=== PATIENT | female | born 1985 | race American Indian/Alaskan Native ===

== ENCOUNTER 2019-08-02 13:53 | Emergency (ER) | payer OTHER ==
[2019-08-02] MEDS ORDERED: IBUPROFEN 800 MG TAB PO ONE (14:07)
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
--- NOTE | 2019-08-02 14:35 | XRay Report ---
Right knee 2 views INDICATION: Right knee pain following injury IMPRESSION: There is a severe moderately displaced fracture involving the lateral tibial plateau. Sunny ge lipohemarthrosis. Signer Name: Marino Conklin MD Signed: 08/02/2019 2:30 PM Workstation Name: [id number]
[2019-08-02] MEDS ORDERED: TETANUS,DIPH,PERTUSS(ACELL) VACCINE 0.5 ML SYRINGE IM ONE (15:12)
[2019-08-02 15:26] LABS: Basophils % (Auto) 0.2 % (0.0-1.8); Eosinophils % (Auto) 0.2 % (0.0-4.3); Hematocrit 37.7 % (30.3-42.9); Hemoglobin 12.3 gm/dl (10.1-14.3); Lymphocytes # (Auto) 2.1 K/mm3 (1.2-5.4); Lymphocytes % (Auto) 16.5 % (13.4-35.0); Mean Corpuscular HGB Conc 33 % (30-34); Mean Corpuscular Volume 86 fl (79-97); Monocytes # (Auto) 0.9 K/mm3 (0.0-0.8); Monocytes % (Auto) 7.2 % (0.0-7.3); Platelet Count 345 K/mm3 (140-440); Red Blood Count 4.39 M/mm3 (3.65-5.03); Red Cell Distribution Width 13.7 % (13.2-15.2)
[2019-08-02 15:52] LABS: Alanine Aminotransferase 146 units/L (7-56); Albumin 3.6 g/dL (3.9-5); BUN/Creatinine Ratio 15; Blood Urea Nitrogen 12 mg/dL (7-17); Calcium 8.6 mg/dL (8.4-10.2); Hemolysis Index 7
[2019-08-02] MEDS ORDERED: HYDROcodone/ACETAMINOPHEN 10-325MG TAB PO ONE (17:05)
--- NOTE | 2019-08-02 18:50 | Cat Scan Report ---
CT lower extremity RT wo con INDICATION: r knee pain. TECHNIQUE: All CT scans at this location are performed using the following dose modulation technique: Automated exposure control. COMPARISON: Right knee x-ray 08/02/2019 FINDINGS: There is a moderately depressed/split fracture of the lateral tibial plateau extending to the lateral tibial metaphysis. In addition, there is a nondisplaced fracture extending into the medial tibial pl ateau. There is an open laceration/wound along the anterior aspect of the patella with mildly displac ed fracture involving the medial aspect of the patella seen best on axial image 143. Moderate right k nee lipohemarthrosis is present. IMPRESSION: 1. (Compound fracture of the medial patella. 2. Moderately depressed split fracture of lateral tibial plateau with extension into the medial tibia l plateau with moderate-sized lipohemarthrosis Signer Name: Leif Sexton MD Signed: 08/02/2019 6:45 PM Workstation Name: [id number]
--- NOTE | 2019-08-02 19:00 | XRay Report ---
RIGHT THUMB 2 VIEWS INDICATION / CLINICAL INFORMATION: Right thumb pain COMPARISON: None available. FINDINGS: BONES / JOINT(S): There is a transversely oriented fracture of the distal aspect of the proximal phal anx of the thumb. The distal fracture fragment is slightly displaced. No other fractures are seen. No significant arthritis. SOFT TISSUES: No significant abnormality. ADDITIONAL FINDINGS: None. Signer Name: Jose Angel Lim MD Signed: 08/02/2019 6:55 PM Workstation Name: [id number]
[2019-08-02 19:57] VITALS: BP 131/76
== END 2019-08-02 20:20 | disposition home or self-care (01) ==
LOC: ED 13:53
DX: S82.51XA Displaced fracture of medial malleolus of right tibia, initial encounter for closed fracture (principal); I10 Essential (primary) hypertension; V89.2XXA Person injured in unspecified motor-vehicle accident, traffic, initial encounter; Y93.89 Activity, other specified; Y92.410 Unspecified street and highway as the place of occurrence of the external cause; Y99.8 Other external cause status
CPT/HCPCS: 29505; 36415; 73140; 73560; 73700; 80053; 84703; 85025; 90471; 90715; 93005; 93010; 96365; 99285; J0690